=== PATIENT | male | born 1975 | race Caucasian/White ===

== ENCOUNTER 2021-04-20 13:59 | Emergency (ER) | payer BC, SELFPAY ==
[2021-04-20 14:15] VITALS: BP 136/83; PULSE 84; RESP 16; TEMP 36.6; O2SAT 97
[2021-04-20 16:06] VITALS: BP 134/76; PULSE 70; RESP 16; O2SAT 96
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
== END 2021-04-20 17:11 | disposition home or self-care (01) ==
PROVIDERS: Emergency Provider Physician Assistant
DX: S16.1XXA Strain of muscle, fascia and tendon at neck level, initial encounter (principal); V49.40XA Driver injured in collision with unspecified motor vehicles in traffic accident, initial encounter
CPT/HCPCS: 72040; 99282

== ENCOUNTER → 2021-08-10 15:38 | Outpatient (BNVA) | payer BC, SELFPAY | PROVIDERS: PCP Nurse Practitioner Family; Visit Provider Nurse Practitioner Family | DX: R50.9 Fever, unspecified (principal); S16.1XXA Strain of muscle, fascia and tendon at neck level, initial encounter; X58.XXXA Exposure to other specified factors, initial encounter | CPT/HCPCS: 87400 ==